=== PATIENT | female | born 1980 ===

== ENCOUNTER 2020-04-05 21:31 | Emergency (ER) | payer SELFPAY ==
[2020-04-05 22:05] LABS: Bacteria/HPF 3+ HPF (None Seen); Bilirubin Negative (Negative); Blood, Urine Negative (Negative); Clarity Clear (Clear); Glucose, Urine (Dipstick) Normal (Negative); Ketone, Urine Negative (Negative); Leukocyte 25 Leu/uL (Negative); Nitrite Negative (Negative); Protein, Urine (Dipstick) Negative (Neg-Trace); RBC/HPF 0-3 HPF (0-3); Urobilinogen Normal mg/dL (Less than 2)
== END 2020-04-06 | disposition home or self-care (01) ==
LOC: ERS 21:31
DX: G89.29 Other chronic pain (principal); M54.5 Low back pain; M54.6 Pain in thoracic spine
CPT/HCPCS: 81003; 81015; 99283